=== PATIENT | male | born 1950 | race Caucasian/White ===

== ENCOUNTER 2024-06-19 11:40 | Inpatient (IN) | payer OTHER ==
[2024-06-19 12:27] LABS: BASO % 0.5 % (0-2.0); EOS % 3.7 % (0-4.5); HEMATOCRIT 37.3 % (35.4-49); HEMOGLOBIN 13.2 GM/dL (11.7-16.9); LYMPH % 34.6 % (8-40); MCH 33.6 pg (25.7-33.7); MCHC 35.3 g/dl (32.0-35.9); MEAN CELL VOLUME 95.2 fl (80-96); MEAN PLT VOLUME 8.5 fl (7.5-11.1); MONO % 9.3 % (3.8-10.2); NEUT % 51.9 % (42.8-82.8); PLATELET COUNT 214 10^3/uL (134-434); RBC 3.92 M/mm3 (4.00-5.60); RETICULOCYTES 1.08 % (0.5-1.5); WHITE BLOOD COUNT 6.8 K/mm3 (4.0-10.0)
[2024-06-19 12:30] LABS: INR 1.17 (0.83-1.09); PROTHROMBIN TIME (PATIENT) 13.2 SEC (9.7-13.0)
[2024-06-19 12:33] LABS: ACTIVATED PTT 38.6 SECONDS (25.2-36.5)
[2024-06-19 12:45] LABS: POTASSIUM 4.3 mmol/L (3.5-5.1)
[2024-06-19 12:49] LABS: ALBUMIN 3.7 g/dl (3.4-5.0); BLOOD UREA NITROGEN 19.5 mg/dL (7-18); CALCIUM 9.4 mg/dL (8.5-10.1); MAGNESIUM 1.8 mg/dL (1.8-2.4)
[2024-06-19 12:52] LABS: CREATININE 0.9 mg/dL (0.55-1.3)
[2024-06-19 12:54] LABS: TOT PROT 6.7 g/dl (6.4-8.2)
[2024-06-19 16:23] LABS: BASO % 0.6 % (0-2.0); HEMATOCRIT 34.7 % (35.4-49); HEMOGLOBIN 12.1 GM/dL (11.7-16.9); LYMPH % 36.1 % (8-40); MCH 33.7 pg (25.7-33.7); MCHC 34.9 g/dl (32.0-35.9); MEAN CELL VOLUME 96.6 fl (80-96); MONO % 8.8 % (3.8-10.2); NEUT % 51.5 % (42.8-82.8); PLATELET COUNT 192 10^3/uL (134-434); RBC 3.59 M/mm3 (4.00-5.60); RDW 13.1 % (11.9-15.9); WHITE BLOOD COUNT 7.6 K/mm3 (4.0-10.0)
[2024-06-19] MEDS: ACETAMINOPHEN 325 MG TABLET (FP) PO PRN (19:13)
[2024-06-19] MEDS ORDERED: ACETAMINOPHEN 325 MG TABLET (FP) ONE (19:13)
[2024-06-19 20:36] LABS: BASO % 0.7 % (0-2.0); EOS % 3.8 % (0-4.5); HEMATOCRIT 36.5 % (35.4-49); HEMOGLOBIN 12.6 GM/dL (11.7-16.9); MCH 33.1 pg (25.7-33.7); MCHC 34.5 g/dl (32.0-35.9); MEAN CELL VOLUME 95.8 fl (80-96); MEAN PLT VOLUME 8.6 fl (7.5-11.1); MONO % 9.7 % (3.8-10.2); NEUT % 43.8 % (42.8-82.8); PLATELET COUNT 207 10^3/uL (134-434); RBC 3.81 M/mm3 (4.00-5.60); RDW 12.8 % (11.9-15.9); WHITE BLOOD COUNT 7.1 K/mm3 (4.0-10.0)
[2024-06-19 20:38] VITALS: BMI 29.0
[2024-06-19] MEDS ORDERED: EPINEPHrine 1:10,000 (P-F SYR) 1 MG/10 ML DISP.SYRIN ONE (20:40)
[2024-06-19] MEDS ORDERED: ONDANSETRON 4 MG/2 ML VIAL IVPUSH PRN (22:07)
[2024-06-19] MEDS ORDERED: ACETAMINOPHEN INJECTION 100 ML ONE (22:36)
[2024-06-19] MEDS: ACETAMINOPHEN 1000 MG/100 ML BAG IVPB ONE (22:38)
[2024-06-19] MEDS: INSULIN ASPART SLIDING SCALE (NOVOLOG) 1 VIAL SQ SCH (23:38)
[2024-06-19] MEDS: CARVEDILOL 12.5 MG TABLET (FP) PO SCH (23:39)
[2024-06-19] MEDS: LACTATED RINGERS SOLUTION 1,000 ML IV SCH (23:39)
[2024-06-19] MEDS: GABAPENTIN 400 MG CAPSULE PO SCH (23:39)
[2024-06-19] MEDS: LACTATED RINGERS SOLUTION 1,000 ML/1,000 ML INFUS.BAG IV SCH (23:40)
[2024-06-20 01:21] LABS: HEMATOCRIT 33.7 % (35.4-49); HEMOGLOBIN 11.8 GM/dL (11.7-16.9); MCH 33.7 pg (25.7-33.7); MCHC 35.1 g/dl (32.0-35.9); MEAN PLT VOLUME 8.8 fl (7.5-11.1); PLATELET COUNT 190 10^3/uL (134-434); RBC 3.51 M/mm3 (4.00-5.60)
[2024-06-20] MEDS: GABAPENTIN 300 MG CAPSULE PO SCH (06:41)
[2024-06-20 08:27] LABS: POTASSIUM 3.9 mmol/L (3.5-5.1)
[2024-06-20 08:31] LABS: BLOOD UREA NITROGEN 13.4 mg/dL (7-18); CALCIUM 8.8 mg/dL (8.5-10.1); MAGNESIUM 1.6 mg/dL (1.8-2.4)
[2024-06-20 08:33] LABS: ALBUMIN 3.4 g/dl (3.4-5.0)
[2024-06-20 08:34] LABS: PHOSPHOROUS 3.6 mg/dL (2.5-4.9)
[2024-06-20 08:37] LABS: CREATININE 0.7 mg/dL (0.55-1.3)
[2024-06-20 09:00] LABS: BASO % 0.8 % (0-2.0); EOS % 4.1 % (0-4.5); HEMATOCRIT 32.5 % (35.4-49); HEMOGLOBIN 11.4 GM/dL (11.7-16.9); LYMPH % 48.9 % (8-40); MCH 33.8 pg (25.7-33.7); MEAN CELL VOLUME 96.5 fl (80-96); MEAN PLT VOLUME 8.8 fl (7.5-11.1); MONO % 8.9 % (3.8-10.2); NEUT % 37.3 % (42.8-82.8); PLATELET COUNT 183 10^3/uL (134-434); RBC 3.37 M/mm3 (4.00-5.60); RDW 12.9 % (11.9-15.9); WHITE BLOOD COUNT 5.9 K/mm3 (4.0-10.0)
[2024-06-20] MEDS ORDERED: LISINOPRIL 20 MG TABLET PO SCH (10:00)
[2024-06-20] MEDS ORDERED: PATIENT'S OWN MEDICATION (NON-FORMULARY) (Amlodipine Besylate/Benazepril [Amlodipine-Benaz PO SCH (10:00)
[2024-06-20] MEDS ORDERED: amLODIPine BESYLATE 5 MG TABLET (FP) PO SCH (10:00)
[2024-06-20] MEDS ORDERED: HYDROCHLOROTHIAZIDE 12.5 MG CAPSULE (FP) PO SCH (10:00)
[2024-06-20] MEDS: MAGNESIUM 2GM/50ML STERILE WATER IVPB IVPB ONE (10:23)
[2024-06-20] MEDS: CARVEDILOL 12.5 MG TABLET (FP) PO SCH (12:13)
[2024-06-20 12:51] VITALS: RESP 19; TEMP 98.8
[2024-06-20 13:16] LABS: BASO % 0.8 % (0-2.0); EOS % 4.6 % (0-4.5); HEMATOCRIT 35.1 % (35.4-49); HEMOGLOBIN 12.1 GM/dL (11.7-16.9); LYMPH % 40.7 % (8-40); MCHC 34.5 g/dl (32.0-35.9); MEAN CELL VOLUME 95.6 fl (80-96); MEAN PLT VOLUME 8.7 fl (7.5-11.1); MONO % 10.1 % (3.8-10.2); NEUT % 43.8 % (42.8-82.8); PLATELET COUNT 201 10^3/uL (134-434); RBC 3.68 M/mm3 (4.00-5.60); RDW 13.3 % (11.9-15.9); WHITE BLOOD COUNT 5.7 K/mm3 (4.0-10.0)
[2024-06-20 13:50] VITALS: PULSE 111
[2024-06-20 15:46] VITALS: BP 120/70
[2024-06-20] MEDS ORDERED: ATORVASTATIN CA 10 MG TABLET (FP) PO SCH (22:00)
== END 2024-06-20 17:05 | disposition home or self-care (01) | DRG 920 ==
LOC: JER 11:40 → JERBED 17:38 → OBSVTOIN 18:26 → J4W 19:37
PROVIDERS: ADMIT Internal Medicine; ATTEND Internal Medicine
PROC: 0W3P8ZZ Control Bleeding in Gastrointestinal Tract, Via Natural or Artificial Opening Endoscopic (ICD-10-PCS; principal; 2024-06-19 20:27)
DX: K91.840 Postprocedural hemorrhage of a digestive system organ or structure following a digestive system procedure (principal); I48.20 Chronic atrial fibrillation, unspecified; K62.5 Hemorrhage of anus and rectum; E11.9 Type 2 diabetes mellitus without complications; I10 Essential (primary) hypertension; I25.10 Atherosclerotic heart disease of native coronary artery without angina pectoris; E78.5 Hyperlipidemia, unspecified; R07.89 Other chest pain; Y83.9 Surgical procedure, unspecified as the cause of abnormal reaction of the patient, or of later complication, without mention of misadventure at the time of the procedure
CPT/HCPCS: 36415; 71045-TC-FY; 74174-TC; 80053; 82962; 83735; 84100; 84484; 85025; 85027; 85045; 85610; 85730; 86850; 86900; 86901; 93005; 93010; 94760; 99285-25; G0378; J0131; Q9967